=== PATIENT | male | born 1955 | race Caucasian/White ===

== ENCOUNTER 2016-09-11 08:10 | Outpatient (CLI) | END 2016-09-11 08:11 | disposition home or self-care (01) | LOC: LAB 08:10 | PROVIDERS: ATTEND General Practice | DX: Z02.1 Encounter for pre-employment examination (principal) | CPT/HCPCS: 36415 ==

== ENCOUNTER 2017-02-05 08:54 | Outpatient (CLI) | payer OTHER ==
[2017-02-05 09:09] LABS: BASOPHILS % (AUTO) 0.5 % (0.0-3.0); EOSINOPHILS # (AUTO) 0.1 K/ul (0.0-0.7); EOSINOPHILS % (AUTO) 1.9 % (0.0-7.0); HEMATOCRIT 37.5 % (42.0-52.0); HEMOGLOBIN 13.2 g/dl (14.0-18.0); IMMATURE GRANULOCYTE % (AUTO) 0.3 % (0.0-5.0); LYMPHOCYTES # (AUTO) 0.8 K/uL (0.60-3.4); MEAN CORPUSCULAR HEMOGLOBIN 31.1 pg (27.0-31.0); MEAN CORPUSCULAR HGB CONC 35.2 (31.8-35.4); MEAN CORPUSCULAR VOLUME 88.2 fl (80.0-94.0); MONOCYTES # (AUTO) 0.3 K/uL (0.4-2.0); MONOCYTES % (AUTO) 8.3 (0-10); NEUTROPHILS # (AUTO) 2.6 K/ul (2.0-6.9); PLATELET COUNT 149 10^3/uL (140-440); RED BLOOD COUNT 4.25 10^6/ul (4.70-6.10); WHITE BLOOD COUNT 3.75 K/ul (4.2-10.2)
[2017-02-05 09:49] LABS: ALBUMIN 4.2 g/dL (3.4-5.0); ALBUMIN/GLOBULIN RATIO 1.4; ANION GAP 12.9; BILIRUBIN,TOTAL 1.41 mg/dL (0.00-1.20); BUN/CREATININE RATIO 18.29; CHOL/HDL RATIO 3.2 (4.5-6.4); CREATININE 0.82 mg/dL (0.60-1.10); POTASSIUM 3.9 mmol/L (3.5-5.1); TOTAL PROTEIN 7.2 g/dL (5.8-8.1)
== END 2017-02-05 08:55 | disposition home or self-care (01) ==
LOC: LAB 08:54
PROVIDERS: ATTEND Family Medicine
DX: E11.9 Type 2 diabetes mellitus without complications (principal); I10 Essential (primary) hypertension; D70.9 Neutropenia, unspecified; E55.9 Vitamin D deficiency, unspecified; D64.9 Anemia, unspecified; Z12.5 Encounter for screening for malignant neoplasm of prostate
CPT/HCPCS: 36415; 80053; 80061; 82043; 82306; 83036; 84443; 85025

== ENCOUNTER 2017-12-05 08:18 | Outpatient (CLI) | END 2017-12-05 08:19 | disposition home or self-care (01) | LOC: LAB 08:18 | PROVIDERS: ATTEND Family Medicine | DX: R73.01 Impaired fasting glucose (principal); K21.9 Gastro-esophageal reflux disease without esophagitis; I10 Essential (primary) hypertension; E61.1 Iron deficiency; D64.9 Anemia, unspecified; M54.9 Dorsalgia, unspecified; G89.29 Other chronic pain; N21.8 Other lower urinary tract calculus; R01.1 Cardiac murmur, unspecified | CPT/HCPCS: 36415; 80053; 80061; 82043; 83036; 83540; 83550; 85025; 86803 ==

== ENCOUNTER 2018-12-08 12:31 | Outpatient (CLI) | END 2018-12-08 12:32 | disposition home or self-care (01) | LOC: LAB 12:31 | PROVIDERS: ATTEND Family Medicine | DX: I10 Essential (primary) hypertension (principal); R00.2 Palpitations; K21.9 Gastro-esophageal reflux disease without esophagitis; E61.1 Iron deficiency; E11.8 Type 2 diabetes mellitus with unspecified complications; D64.9 Anemia, unspecified; D70.9 Neutropenia, unspecified; Z12.5 Encounter for screening for malignant neoplasm of prostate | CPT/HCPCS: 36415; 80053; 80061; 82306; 82607; 82746; 83036; 83540; 83550; 84443; 85025 ==

== ENCOUNTER 2021-09-18 20:52 | Inpatient (IN) ==
[2021-09-18] MEDS ORDERED: SODIUM CHLORIDE 1,000 ML IV STA (20:59)
[2021-09-18] MEDS ORDERED: CARDIZEM INJ IVP STA (20:59)
--- NOTE | 2021-09-18 21:11 | ED.PDOC ---
General ED Provider: Dr. JANES LOUIS Chief Complaint: Chest Pain Stated Complaint: Pt presents with palpitations, chest pressure and lightheadedness. Pt has had extra beats in the past that has resolved with coughing. About 45 minutes prior to arrival, he developed palpitations that have not stopped. He had some chest pressure and lightheadedness with the palpitations. Denies any N/V/AP/SOB. Nothing else has made the sxs better or worse and they are mild in nature. Time Seen by Provider: 09/18/21 20:58 Primary Care Provider: GRANT RECIO Nursing and Triage Documentation Reviewed and Agree: Yes Does patient meet sepsis criteria?: No If yes, has appropriate treatment been initiated?: No System Inflammatory Response Syndrome: Not Applicable Sepsis Protocol: For patient's 13 years and over: Temp is 96.8 and below OR 101 and greater Pulse >90 BPM Resp >20/minute Acutely Altered Mental Status Are patient's symptoms suggestive of a new infection, such as: -Pneumonia -Skin, Soft Tissue -Endocarditis -UTI -Bone, Joint Infection -Implantable Device -Acute Abdominal Infection -Wound Infection -Meningitis -Blood Stream Catheter Infection -Unknown Review of Systems Review Of Systems Constitutional: Reports No symptoms Eyes: Reports No symptoms Ears, Nose, Mouth, Throat: Reports No symptoms Respiratory: Reports No symptoms Cardiac: Reports Chest pain (tightness), Lightheadedness and Palpitations GI: Reports No symptoms : Reports No symptoms Musculoskeletal: Reports No symptoms Skin: Reports No symptoms Neurological: Reports No symptoms Endocrine: Reports No symptoms Hematologic/Lymphatic: Reports No symptoms All Other Systems: Reviewed and Negative Physical Exam Physical Exam Appearance: Reports Well-appearing, No pain distress and Well-nourished Ill-appearing: None Pain Distress: None Eyes: Reports JAUN, EOMI and Conjunctiva clear ENT: Reports Not Examined Neck: Supple Respiratory: Reports Airway patent, Breath sounds clear, Breath sounds equal and Respirations nonlabored Cardiovascular: Reports No rub, No murmur, Irregular rhythm and Tachycardia GI/: Reports Soft, Nontender, No masses, Bowel sounds normal and No Organomeg rosy Musculoskeletal: Reports Normal strength, ROM intact, No edema and No calf tenderness Skin: Reports Warm, Dry and Normal color Neurological: Reports Sensation intact, Motor intact, Reflexes intact, Cranial nerves intact, Alert and Oriented Psychiatric: Reports Affect appropriate and Mood appropriate Interpretation EKG Interpretation Time of EKG #1: 21:09 Rate: Tachy Rhythm: Other (Afib) Ectopy: None [place]: [place] ST Segment: Other (Rate related ST depressions laterally.) Critical Care Note Critical Care Note Total Critical Care Time (mins): 32 Course Course Hematology/Chemistry: 09/18/21 21:13 09/18/21 21:13 Orders, Labs, Meds: Lab Review 09/18/21 09/18/21 09/18/21 21:10 21:13 21:13 WBC 5.43 RBC 4.31 L Hgb 13.6 L Hct 39.6 L MCV 91.9 MCH 31.6 H MCHC 34.3 RDW Coeff of Jamal 12.8 Plt Count 146 Immature Gran % (Auto) 0.4 Neut % (Auto) 70.3 Lymph % (Auto) 17.1 [place] % (Auto) 10.1 H Eos % (Auto) 1.7 Baso % (Auto) 0.4 Neut # (Auto) 3.8 Lymph # (Auto) 0.9 [place] # (Auto) 0.6 Eos # (Auto) 0.1 Baso # (Auto) 0.0 Immature Gran # (Auto) 0.0 Sodium 138.2 Potassium 3.79 Chloride 106.6 Carbon Dioxide 24.2 Anion Gap 11.19 BUN 29.7 H Creatinine 0.96 Estimated GFR (MDRD) 78.00 BUN/Creatinine Ratio 30.93 Glucose 156.2 H Calcium 9.80 Magnesium 2.13 Total Bilirubin 2.04 H AST 35.2 ALT 22.7 Alkaline Phosphatase 75.4 Total Creatine Kinase 169.7 CK-MB (CK-2) 2.620 H CK-MB (CK-2) % 1.5400 Troponin I 0.014 Total Protein 7.06 Albumin 4.51 Globulin 2.55 Albumin/Globulin Ratio 1.76 Amylase 63.0 SARS-CoV-2 Ag (Rapid) Negative Orders Category Date Time Status EKG-(ED ONLY) Stat CARDIO 09/18/21 21:00 Completed TELEMETRY MONITORING TELE CARE 09/18/21 21:57 Active AMYLASE Stat LAB 09/18/21 21:13 Completed CBC W/ AUTO DIFF Stat LAB 09/18/21 21:13 Completed COMPREHENSIVE METABOLIC PANEL Stat LAB 09/18/21 21:13 Completed COVID-19 ANTIGEN TEST Stat LAB 09/18/21 21:10 Completed CREATINE KINASE Stat LAB 09/18/21 21:13 Completed MAGNESIUM Stat LAB 09/18/21 21:13 Completed TROPONIN I Stat LAB 09/18/21 21:13 Completed Amlodipine Besylate [Norvasc] MEDS 09/19/21 17:00 Ordered 10 mg PO QPM Apixaban [Eliquis] MEDS 09/19/21 09:00 Ordered 5 mg PO BID Apixaban [Eliquis] MEDS 09/18/21 21:54 Discontinued 5 mg PO ONCE STA Cholecalciferol (Vitamin D3) [Vitamin D] MEDS 09/19/21 09:00 Ordered DOSE unit PO DAILY Diltiazem HCl [Cardizem Inj] MEDS 09/18/21 20:59 Discontinued 15 mg IVP ONCE STA Diltiazem HCl [Cardizem] 125 mg MEDS 09/18/21 21:00 Active 0.9 % Sodium Chloride [Sodium Chloride 100Ml] 100 ml IV TITRATION Metformin HCl [Glucophage] MEDS 09/19/21 09:00 Ordered 500 mg PO BID Sodium Chloride 0.9% [Sodium Chloride] 1,000 ml MEDS 09/18/21 20:59 Discontinued IV BOLUS multivitamin MEDS 09/19/21 09:00 Ordered 1 tab PO DAILY omeprazole magnesium [Prilosec OTC] MEDS 09/19/21 09:00 Ordered 20 mg PO DAILY CHEST, 1V AP ONLY Stat RADS 09/18/21 21:00 Completed Medications Generic Name Dose Route Start Last Admin Trade Name Freq PRN Reason Stop Dose Admin Amlodipine Besylate 10 mg 09/19/21 17:00 Amlodipine Besylate 5 Mg Tablet PO QPM [facility] Apixaban 5 mg 09/19/21 09:00 Apixaban 5 Mg Tab PO BID RIGO Cholecalciferol unit 09/19/21 09:00 Cholecalciferol (Vitamin D3) 1,000 Unit (25 Mcg) Tablet PO DAILY [facility] Diltiazem HCl 125 mg/ Sodium 125 mls @ 5 mls/hr 09/18/21 21:00 09/18/21 21:25 Chloride IV 5 mg/hr TITRATION RIGO 5 mls/hr Administration Protocol 5 MG/HR Losartan Potassium 50 mg 09/19/21 09:00 Losartan Potassium 100 Mg Tablet PO BID [facility] Metformin HCl 500 mg 09/19/21 09:00 Metformin Hcl 500 Mg Tablet PO BID RIGO Metformin HCl 500 mg 09/19/21 21:00 Metformin Hcl 500 Mg Tablet PO BEDTIME RIGO Non-Formulary Medication 20 mg 09/19/21 09:00 Omeprazole Magnesium [Prilosec Otc] PO DAILY RIGO Non-Formulary Medication 1 tab 09/19/21 09:00 Multivitamin PO DAILY RIGO Discontinued Medications Generic Name Dose Route Start Last Admin Trade Name Xanderq PRN Reason Stop Dose Admin Apixaban 5 mg 09/18/21 21:54 Apixaban 5 Mg Tab PO 09/18/21 21:55 ONCE STA Diltiazem HCl 15 mg 09/18/21 20:59 09/18/21 21:22 Diltiazem Hcl Inj 25 Mg/5 Ml Vial IVP 09/18/21 21:00 15 mg ONCE STA Administration Sodium Chloride 1,000 mls @ 1,000 mls/hr 09/18/21 20:59 09/18/21 21:25 Sodium Chloride IV 09/18/21 21:58 1,000 mls/hr BOLUS STA Administration Vital Signs: Temp Pulse Resp BP Pulse Ox 09/18/21 20:54 97.1 F L 149 H 20 109/76 92 L Discharge Plan Discharge Patient Disposition: ADMITTED INPATIENT Discharge Problem: Atrial fibrillation with rapid ventricular response, Incidental pulmonary nodule ED Provider: JANES LOUIS Physician Progress Note: I reviewed pt results. CBC shows a Hb of 13.6. Chems show a glucose of 156. CK and trop i are unremarkable. Covid test is negative and CXR show a pulmonary nodule but no other acute findings. I have tried to have the patient transferre d but there are no available beds. I spoke with Dr. Quinn who will consule on the patient. I will admit to the hospitalist service qwith his consult. Critical care time was 32 minutes excluding procedures for cardiac compromise.
[2021-09-18 21:16] LABS: BASOPHILS % (AUTO) 0.4 % (0.0-3.0); EOSINOPHILS # (AUTO) 0.1 K/ul (0.0-0.7); EOSINOPHILS % (AUTO) 1.7 % (0.0-7.0); HEMATOCRIT 39.6 % (42.0-52.0); HEMOGLOBIN 13.6 g/dl (14.0-18.0); IMMATURE GRANULOCYTE % (AUTO) 0.4 % (0.0-5.0); LYMPHOCYTES # (AUTO) 0.9 K/uL (0.60-3.4); LYMPHOCYTES % (AUTO) 17.1 (10.0-50.0); MEAN CORPUSCULAR HEMOGLOBIN 31.6 pg (27.0-31.0); MEAN CORPUSCULAR HGB CONC 34.3 (31.8-35.4); MEAN CORPUSCULAR VOLUME 91.9 fl (80.0-94.0); MONOCYTES # (AUTO) 0.6 K/uL (0.4-2.0); MONOCYTES % (AUTO) 10.1 (0-10); NEUTROPHILS # (AUTO) 3.8 K/ul (2.0-6.9); NEUTROPHILS % (AUTO) 70.3 % (42.2-75.2); PLATELET COUNT 146 10^3/uL (140-440); RDW COEFFICIENT OF VARIATION 12.8 % (11.6-14.8); RED BLOOD COUNT 4.31 10^6/ul (4.70-6.10); WHITE BLOOD COUNT 5.43 K/ul (4.2-10.2)
[2021-09-18] MEDS: CARDIZEM 125 MG in SODIUM CHLORIDE 100ML 100 ML IV SCH (21:25)
[2021-09-18 21:27] LABS: ALANINE AMINOTRANSFERASE 22.7 U/L (0-50); ALBUMIN 4.51 g/dL (3.5-5.0); ALKALINE PHOSPHATASE 75.4 U/L (56-119); ASPARTATE AMINO TRANSFERASE 35.2 U/L (17-59); BILIRUBIN,TOTAL 2.04 mg/dL (0.2-1.3); BLOOD UREA NITROGEN 29.7 mg/dL (9-20); CALCIUM 9.8 mg/dL (8.4-10.2); CARBON DIOXIDE 24.2 mmol/L (22-30.0); CHLORIDE 106.6 mmol/L (98-107); CREATINE KINASE 169.7 U/L (55-170); CREATININE 0.96 mg/dL (0.60-1.10); GLUCOSE 156.2 mg/dL (74-106); MAGNESIUM 2.13 mg/dL (1.6-2.3); POTASSIUM 3.79 mmol/L (3.5-5.1); SODIUM 138.2 mmol/L (134.5-145); TOTAL PROTEIN 7.06 g/dL (6.3-8.2)
[2021-09-18 21:38] LABS: TROPONIN I 0.014 ng/ml (0.0000-0.120)
[2021-09-18 21:41] LABS: CREATINE KINASE MB 2.62 ng/ml (0.0-2.38)
--- NOTE | 2021-09-18 21:44 | DI ---
EXAM: Single-view chest HISTORY: Chest pain COMPARISON: None. FINDINGS: The heart is normal in size. Atherosclerotic changes are seen involving the aortic arch.. There is no consolidation or effusion. 4 mm nodular opacity within the left upper lobe which may b e related to granulomatous changes. Suggest follow-up comparative examination at 3-month interval. IMPRESSION: No evidence of active pulmonary disease. Small upper lobe pulmonary nodule which merits follow-up of 3 mL.
[2021-09-18] MEDS ORDERED: ELIQUIS PO STA (21:54)
--- NOTE | 2021-09-18 22:08 | PCM ---
Chief Complaint Chief Complaint: Palpitations History of Present Illness History of Present Illness: Pt presents with palpitations, chest pressure and lightheadedness. Pt has had extra beats in the past that has resolved with coughing. About 45 minutes prior to arrival, he developed palpitations that have not stopped. He had some chest pressure and lightheadedness with the palpitations. Denies any N/V/AP/SOB. Nothing else has made the sxs better or worse and they are mild in nature. In the ER he was started on a cardizem drip and has responded slightly with a current HR around 130. Review of Systems Constitutional: Reports No symptoms Eyes: Reports No symptoms Ears: Reports No symptoms Nose: Reports No symptoms Throat: Reports No symptoms, Pain, Swelling, Voice change and Other Mouth: Reports No symptoms Respiratory: Reports No symptoms Cardiovascular: Reports Chest pain (Tightness) and Palpitations Gastrointestinal: Reports No symptoms Genitourinary: Reports No symptoms Neurological: Reports No symptoms Musculoskeletal: Reports No symptoms Skin: Reports No symptoms Immunology: Reports No symptoms Hematology: Reports No symptoms Endocrine: Reports No symptoms Psychiatric: Reports No symptoms Habits: Reports Tobacco use Allergies Allergies Allergy/AdvReac Type Severity Reaction Status Date / Time No Known Allergies Allergy Unverified 09/18/21 21:09 Medications Medications: Medications Generic Name Dose Route Start Last Admin Trade Name Freq PRN Reason Stop Dose Admin Amlodipine Besylate 10 mg 09/19/21 17:00 Amlodipine Besylate 5 Mg Tablet PO QPM [facility] Apixaban 5 mg 09/19/21 09:00 Apixaban 5 Mg Tab PO BID [facility] Cholecalciferol unit 09/19/21 09:00 Cholecalciferol (Vitamin D3) 1,000 Unit (25 Mcg) Tablet PO DAILY [facility] Diltiazem HCl 125 mg/ Sodium 125 mls @ 5 mls/hr 09/18/21 21:00 09/18/21 21:25 Chloride IV 5 mg/hr TITRATION RIGO 5 mls/hr Administration Protocol 5 MG/HR Losartan Potassium 50 mg 09/19/21 09:00 Losartan Potassium 100 Mg Tablet PO BID [facility] Metformin HCl 500 mg 09/19/21 09:00 Metformin Hcl 500 Mg Tablet PO BID [facility] Metformin HCl 500 mg 09/19/21 21:00 Metformin Hcl 500 Mg Tablet PO BEDTIME [facility] Non-Formulary Medication 20 mg 09/19/21 09:00 Omeprazole Magnesium [Prilosec Otc] PO DAILY [facility] Non-Formulary Medication 1 tab 09/19/21 09:00 Multivitamin PO DAILY [facility] Body Composition Height: 5 ft 11 in Weight: 118 kg Body Mass Index (BMI): 36.3 Vital Signs Temperature: 97.1 F Pulse Rate: 149 Respiratory Rate: 20 Blood Pressure: 109/76 O2 Sat by Pulse Oximetry: 92 Physical Examination Appearance: Reports Well-appearing Ill-appearing: None Pain Distress: None Eyes: Reports JAUN and EOMI ENT: Reports Not Examined Neck: Supple Respiratory: Reports Airway patent, Breath sounds clear, Breath sounds equal and Respirations nonlabored Cardiovascular: Reports Pulses normal, No rub, No murmur, Irregular rhythm and Tachycardia GI/: Reports Soft and Nontender Musculoskeletal: Reports Normal strength and ROM intact Skin: Reports Warm and Dry Neurological: Reports Sensation intact, Motor intact and Reflexes intact Psychiatric: Reports Affect appropriate and Mood appropriate Lab/Tests/Diagnostic Imaging Lab/Tests/Diagnostic Imaging: Lab Review 09/18/21 09/18/21 09/18/21 21:10 21:13 21:13 WBC 5.43 RBC 4.31 L Hgb 13.6 L Hct 39.6 L MCV 91.9 MCH 31.6 H MCHC 34.3 RDW Coeff of Jamal 12.8 Plt Count 146 Immature Gran % (Auto) 0.4 Neut % (Auto) 70.3 Lymph % (Auto) 17.1 [place] % (Auto) 10.1 H Eos % (Auto) 1.7 Baso % (Auto) 0.4 Neut # (Auto) 3.8 Lymph # (Auto) 0.9 [place] # (Auto) 0.6 Eos # (Auto) 0.1 Baso # (Auto) 0.0 Immature Gran # (Auto) 0.0 Sodium 138.2 Potassium 3.79 Chloride 106.6 Carbon Dioxide 24.2 Anion Gap 11.19 BUN 29.7 H Creatinine 0.96 Estimated GFR (MDRD) 78.00 BUN/Creatinine Ratio 30.93 Glucose 156.2 H Calcium 9.80 Magnesium 2.13 Total Bilirubin 2.04 H AST 35.2 ALT 22.7 Alkaline Phosphatase 75.4 Total Creatine Kinase 169.7 CK-MB (CK-2) 2.620 H CK-MB (CK-2) % 1.5400 Troponin I 0.014 Total Protein 7.06 Albumin 4.51 Globulin 2.55 Albumin/Globulin Ratio 1.76 Amylase 63.0 SARS-CoV-2 Ag (Rapid) Negative Orders Category Date Time Status ADMIT PATIENT INPATIENT .TO MEDSURG (MONITORED BED) ADMISSION 09/18/21 22:02 Active EKG-(ED ONLY) Stat CARDIO 09/18/21 21:00 Completed NOTIFY PHYSICIAN OF CONSULT ONCE CARE 09/18/21 21:59 Active TELEMETRY MONITORING TELE CARE 09/18/21 21:57 Active TELEMETRY MONITORING TELE CARE 09/18/21 22:02 Active CONSULT PHYSICIAN [PHYSICIAN CONSULTATION] [CONS] CONSULTS 09/18/21 21:59 Ordered Routine AMYLASE Stat LAB 09/18/21 21:13 Completed CBC W/ AUTO DIFF Stat LAB 09/18/21 21:13 Completed COMPREHENSIVE METABOLIC PANEL Stat LAB 09/18/21 21:13 Completed COVID-19 ANTIGEN TEST Stat LAB 09/18/21 21:10 Completed CREATINE KINASE Stat LAB 09/18/21 21:13 Completed MAGNESIUM Stat LAB 09/18/21 21:13 Completed TROPONIN I Stat LAB 09/18/21 21:13 Completed Amlodipine Besylate [Norvasc] MEDS 09/19/21 17:00 Ordered 10 mg PO QPM Apixaban [Eliquis] MEDS 09/19/21 09:00 Ordered 5 mg PO BID Apixaban [Eliquis] MEDS 09/18/21 21:54 Discontinued 5 mg PO ONCE STA Cholecalciferol (Vitamin D3) [Vitamin D] MEDS 09/19/21 09:00 Ordered DOSE unit PO DAILY Diltiazem HCl [Cardizem Inj] MEDS 09/18/21 20:59 Discontinued 15 mg IVP ONCE STA Diltiazem HCl [Cardizem] 125 mg MEDS 09/18/21 21:00 Active 0.9 % Sodium Chloride [Sodium Chloride 100Ml] 100 ml IV TITRATION Losartan Potassium [Cozaar] MEDS 09/19/21 09:00 Ordered 50 mg PO BID Metformin HCl [Glucophage] MEDS 09/19/21 21:00 Ordered 500 mg PO BEDTIME Metformin HCl [Glucophage] MEDS 09/19/21 09:00 Ordered 500 mg PO BID Sodium Chloride 0.9% [Sodium Chloride] 1,000 ml MEDS 09/18/21 20:59 Discontinued IV BOLUS multivitamin MEDS 09/19/21 09:00 Ordered 1 tab PO DAILY omeprazole magnesium [Prilosec OTC] MEDS 09/19/21 09:00 Ordered 20 mg PO DAILY CHEST, 1V AP ONLY Stat RADS 09/18/21 21:00 Completed Medications Generic Name Dose Route Start Last Admin Trade Name Gary PRN Reason Stop Dose Admin Amlodipine Besylate 10 mg 09/19/21 17:00 Amlodipine Besylate 5 Mg Tablet PO QPM RIGO Apixaban 5 mg 09/19/21 09:00 Apixaban 5 Mg Tab PO BID RIGO Cholecalciferol unit 09/19/21 09:00 Cholecalciferol (Vitamin D3) 1,000 Unit (25 Mcg) Tablet PO DAILY RIGO Diltiazem HCl 125 mg/ Sodium 125 mls @ 5 mls/hr 09/18/21 21:00 09/18/21 21:25 Chloride IV 5 mg/hr TITRATION RIGO 5 mls/hr Administration Protocol 5 MG/HR Losartan Potassium 50 mg 09/19/21 09:00 Losartan Potassium 100 Mg Tablet PO BID RIGO Metformin HCl 500 mg 09/19/21 09:00 Metformin Hcl 500 Mg Tablet PO BID RIGO Metformin HCl 500 mg 09/19/21 21:00 Metformin Hcl 500 Mg Tablet PO BEDTIME RIGO Non-Formulary Medication 20 mg 09/19/21 09:00 Omeprazole Magnesium [Prilosec Otc] PO DAILY RIGO Non-Formulary Medication 1 tab 09/19/21 09:00 Multivitamin PO DAILY RIGO Discontinued Medications Generic Name Dose Route Start Last Admin Trade Name Gary PRN Reason Stop Dose Admin Apixaban 5 mg 09/18/21 21:54 Apixaban 5 Mg Tab PO 09/18/21 21:55 ONCE STA Diltiazem HCl 15 mg 09/18/21 20:59 09/18/21 21:22 Diltiazem Hcl Inj 25 Mg/5 Ml Vial IVP 09/18/21 21:00 15 mg ONCE STA Administration Sodium Chloride 1,000 mls @ 1,000 mls/hr 09/18/21 20:59 09/18/21 21:25 Sodium Chloride IV 09/18/21 21:58 1,000 mls/hr BOLUS STA Administration Assessment (1) Atrial fibrillation with rapid ventricular response: Status: Acute Code(s): I48.91 - Unspecified atrial fibrillation SNOMED Code(s): 489129158369952 (2) Incidental pulmonary nodule: Status: Acute Code(s): R91.1 - Solitary pulmonary nodule SNOMED Code(s): 167658413 Plan Plan: 1. Afib w/ RVR: Admit to telemetry. Continue cardizem drip. Start Eliquis. Consult Dr. Quinn. 2. Pulmonary nodule: Follow up with PMD in 3 months for recheck.
[2021-09-19 00:49] VITALS: BMI 39.7
[2021-09-19 06:33] LABS: PROTHROMBIN TIME 10.8 SEC (9.3-11.0)
[2021-09-19] MEDS: PRILOSEC PO SCH (06:37)
[2021-09-19] MEDS ORDERED: GLUCOPHAGE PO SCH ×2 (08:30→21:00)
[2021-09-19] MEDS: MULTIVITAMIN TABLET PO SCH (08:53)
[2021-09-19] MEDS: ELIQUIS PO SCH ×2 (08:54→20:34)
[2021-09-19] MEDS: VITAMIN D PO SCH (08:54)
--- NOTE | 2021-09-19 08:56 | PCM.PROG ---
Attending Provider: ATTENDING PROVIDER: Dr. DANIELA BONE This patient is seen with Terese Granados, Nurse Practitioner. DATE OF SERVICE: 09/19/21 SUBJECTIVE: This 66 year old /WHITE M was hospitalized 09/18/21. Started last night with weakness episode. The patient noticed heart rate irregular and fast. He denies having any chest pain or breaking out in sweat. States he has been having some palpitation off and on for past several months. Denies any cardiac history. Last stress test approximately 5 years ago and normal. He has been limiting caffeine on his own. Regular PCP is Rigoberto Avila. REVIEW OF SYSTEMS: CONSTITUTIONAL: No night sweats. No fatigue, malaise, lethargy. No fever or chills. Weakness. HEENT: Eyes: No visual changes. No eye pain. No eye discharge. ENT: No runny nose. No epistaxis. No sinus pain. No odynophagia. No congestion. RESPIRATORY: No cough, no congestion. No hemoptysis. No shortness of breath. CARDIOVASCULAR: No angina symptoms. No CHF symptoms. No atypical chest pain for CAD. Palpitations. No orthopnea.. GASTROINTESTINAL: No abdominal pain. No nausea or vomiting. No diarrhea or constipation. No hematemesis. No hematochezia. GENITOURINARY: No urgency. No frequency. No dysuria. No hematuria. No obstructive symptoms. No discharge. No pain. No significant abnormal bleeding. MUSCULOSKELETAL: No musculoskeletal pain; no joint swelling. NEUROLOGICAL: Awake, alert, oriented to time, place and person. No headache. No neck pain. No syncope. No seizures. No dizziness. PSYCHIATRIC: Not anxious. No depression. No suicidal thoughts. No homicidal thoughts. SKIN: No rash. No lesions. No wounds. ENDOCRINE: No unexplained weight loss. No weight gain. HEMATOLOGIC/LYMPHATIC: No anemia. No purpura. No petechiae. No prolonged or exce ssive bleeding. No palpable lymph nodes. PHYSICAL EXAMINATION: GENERAL: The patient is awake, alert and oriented, lying in bed in no distress. VITAL SIGNS: Temperature 98.5 F, Pulse 130, Respiratory Rate 20, BP 102/64, Pulse Ox 95% HEENT: Head normocephalic, atraumatic. Eyes: Extraocular muscles are intact. Pupils are equal, round and reactive to light and accommodation. Ears: No lesions. Nose appeared normal. Throat: No exudate or erythema. NECK: Supple. No JVD, no carotid bruit. No lymphadenopathy or thyromegaly. LUNGS: Clear to auscultation. Percussion note normal. Chest symmetrical. HEART: S1, S2, no S3. No murmurs. Irregular heart rate. No cyanosis or clubbing. No ascites. Pulses: Dorsalis pedis and posterior tibial pulses +1 to +2 both sides. ABDOMEN: Soft. Non-tender. Bowel sounds active. No CVA tenderness. No mass felt. EXTREMITIES: No edema. Full range of motion of all extremities, equal. NEUROLOGIC: No focal deficit. Cranial nerves II through XII are grossly intact. No headache. No double vision. SKIN: Not dry. Intact. Turgor-normal. LYMPHATIC: No palpable lymph nodes/no lymphedema. MUSCULOSKELETAL: Normal joints with no swelling. Muscle tone is normal. LAB REVIEW: 09/18/21 21:13 09/18/21 21:13 09/19/21 06:10: Troponin I 0.480 H 09/19/21 06:10: PT 10.8, INR 1.04 09/18/21 21:13: Sodium 138.2, Potassium 3.79, Chloride 106.6, Carbon Dioxide 24.2, Anion Gap 11.19, BUN 29.7 H, Creatinine 0.96, Estimated GFR (MDRD) 78.00, BUN/Creatinine Ratio 30.93, Glucose 156.2 H, Calcium 9.80, Magnesium 2.13, Total Bilirubin 2.04 H, AST 35.2, ALT 22.7, Alkaline Phosphatase 75.4, Total Creatine Kinase 169.7, CK-MB (CK-2) 2.620 H, CK-MB (CK-2) % 1.5400, Troponin I 0.014, Total Protein 7.06, Albumin 4.51, Globulin 2.55, Albumin/Globulin Ratio 1.76, Amylase 63.0 09/18/21 21:13: WBC 5.43, RBC 4.31 L, Hgb 13.6 L, Hct 39.6 L, MCV 91.9, MCH 31.6 H, MCHC 34.3, RDW Coeff of Jamal 12.8, Plt Count 146, Immature Gran % (Auto) 0.4, Neut % (Auto) 70.3, Lymph % (Auto) 17.1, [place] % (Auto) 10.1 H, Eos % (Auto) 1.7, Baso % (Auto) 0.4, Neut # (Auto) 3.8, Lymph # (Auto) 0.9, [place] # (Auto) 0.6, Eos # (Auto) 0.1, Baso # (Auto) 0.0, Immature Gran # (Auto) 0.0 09/18/21 21:10: SARS-CoV-2 Ag (Rapid) Negative ASSESSMENT: Please see below. 1. New onset atrial fibrillation with RVR 2. Diabetes Mellitus type II 3. Obesity 4. Family history of CAD 5. Nonsmoker PLAN: 1. T4 TSH 2. Lipid panel 3. A1c 4. 2D echo 5. Hold Losartan 6. Hold Norvasc Plan and coordination of the patient's care discussed in the presence of Clinic Cma and nurse. SCRIBED BY: DENAE JOSEPH Wood Block Artist scribed while in presence of service performed by Dr. Quinn/Terese Granados APRN on 09/19/21 ([id number])
[2021-09-19] MEDS ORDERED: COZAAR PO SCH ×2 (09:00)
[2021-09-19] MEDS ORDERED: MOBIC PO SCH (09:00)
[2021-09-19 09:23] LABS: CHOLESTEROL 159.8 mg/dL (0-200); HDL CHOLESTEROL 44.4 mg/dL (35-60); TRIGLYCERIDES 114.6 mg/dL (0-150)
[2021-09-19 09:56] LABS: THYROID STIMULATING HORMONE 1.38 uIU/L (0.465-4.68)
[2021-09-19] MEDS: CARDIZEM PO SCH ×2 (10:09→20:33)
[2021-09-19] MEDS ORDERED: LANOXIN IVP ONE ×2 (10:15→11:20)
[2021-09-19] MEDS: CARDIZEM 125 MG in SODIUM CHLORIDE 100ML 100 ML IV SCH ×2 (11:31→21:00)
--- NOTE | 2021-09-19 14:24 | ECHO2D ---
Date of Exam: 09/19/2021 Ordering Physician: DR. RECIO / HOSPITALIST ADMIT Room #: 109 Reason for Echo: ATRIAL FIBRILLATION WITH RAPID VENTRICULAR RATE M-Mode Normal Adult Results LV Dimensions Normal Adult Results AoV Opening excursions >1.6 >1.6 LVEDD-base- 3.5-5.8 5.3 Ao root dimensions 2.0-3.7 4.1 LVESD-base- 3.1-4.6 L. Atrium dimensions 1.9-3.8 5.6 Post. Wall thickness 0.8-1.1 1.4 IV septum (thickness) 0.7-1.2 1.5 Post. Wall excursion 0.72-1.3 NORMAL Septal motion NORMAL Systolic motion R. Ventricular cavity 1.5-2.0 NORMAL LVEF 60% 74% Paradoxical septal wall motion NORMAL 2-D : ENLARGED LEFT ATRIAL CAVITY. CALCIFIC MITRAL VALVE ANNULUS. 2-D M Mode Echocardiogram was performed using apical four chamber and left parasternal long and short axis views. Calcific mitral valve annulus. Tricuspid and aortic valves appear to be normal. Contractility of the left ventricle seems to be normal, so is the cavity size. Enlarged left atrial cavity size. Aortic root appears mildly dilated. There is no pericardial effusion. There is no thrombus noted in the left ventricle or left atrial cavity. M-MODE: MV: CALCIFIC MITRAL VALVE ANNULUS AV: NORMAL TV: NORMAL PV: CHAMBER SIZE: ENLARGED LEFT ATRIAL CAVITY WALL MOTION: NORMAL PERICARDIUM: NORMAL INTERPRETATION: 1. MODERATE LEFT VENTRICULAR HYPERTROPHY WITH ENLARGED LEFT ATRIAL CAVITY (5.6CM) 2. CALCIFIC MITRAL VALVE ANNULUS (HEAVY) 3. NORMAL LEFT VENTRICULAR CONTRACTILITY. NORMAL LEFT VENTRICLE SIZE. 4. DILATED AORTIC ROOT (MILD) MTDD
[2021-09-19] MEDS ORDERED: NORVASC PO SCH (17:00)
[2021-09-19] MEDS ORDERED: COZAAR PO ONE (18:10)
[2021-09-19] MEDS ORDERED: HYDROCHLOROTHIAZIDE PO ONE (18:10)
[2021-09-20] MEDS: PRILOSEC PO SCH (05:48)
[2021-09-20 06:26] VITALS: BP 149/93; TEMP 97.4
--- NOTE | 2021-09-20 08:08 | PCM.PROG ---
Date Seen by Provider: 09/20/21 Time Seen by Provider: 07:45 Subjective: Pt is doing well this morning. Converted from Afib to sinus rhythm yesterday around 1. Denies any palpitations, CP or SOB today. Objective: Vitals: T=97.4 F, P=69, R=16, AD=559/93, SPO2=94 HEENT: PERRL Neck: supple Lungs: clear CVS: RRR Abdomen: soft, non-tender Neurological: A+O x3 Lab/Tests/Diagnostic Imaging: second trop was 0.48. INR negative. Echo showed moderate LVH, calcified mitral valve and mild aortic root dilation. (1) Atrial fibrillation with rapid ventricular response: Status: Acute Code(s): I48.91 - Unspecified atrial fibrillation SNOMED Code(s): 197338685559606 (2) Incidental pulmonary nodule: Status: Acute Code(s): R91.1 - Solitary pulmonary nodule SNOMED Code(s): 642113465 Plan: 1. Afib w/ RVR: Pt has converted. Will check a trop today to assure that it is not still rising. Will await cardiology recommendations and suspect DC today or possibly tomorrow. 2. Pulmonary nodule: Follow up with repeat CXR in 3 months.
[2021-09-20] MEDS: MULTIVITAMIN TABLET PO SCH (08:48)
[2021-09-20] MEDS: VITAMIN D PO SCH (08:48)
[2021-09-20] MEDS: ELIQUIS PO SCH (08:48)
[2021-09-20] MEDS: CARDIZEM PO SCH (08:48)
[2021-09-20] MEDS ORDERED: COZAAR PO SCH (09:00)
--- NOTE | 2021-09-20 10:17 | PCM.CONS ---
CONSULTING PROVIDER: Dr. BENJY RUEDA ATTENDING PROVIDER: Dr. JANES LOUIS DATE OF SERVICE: 09/20/21 SUBJECTIVE: This 66 year old /WHITE M was hospitalized 09/18/21 with atrial fibrillation with rapid ventricular response. The patient's symptoms prior to coming to ER more like chest tightness and dizziness. The patient had no symptoms of coronary insufficiency or CHF. The patient stayed in atrial fibrillation for 24 hours and converted to sinus rhythm yesterday afternoon. That was about 18 hours ago. The patient has been in sinus rhythm ever since then. REVIEW OF SYSTEMS: CONSTITUTIONAL: No night sweats. No fatigue, malaise, lethargy. No fever or chills. Feeling a lot better this morning. HEENT: Eyes: No visual changes. No eye pain. No eye discharge. ENT: No runny nose. No epistaxis. No sinus pain. No odynophagia. No congestion. RESPIRATORY: No cough, no congestion. No hemoptysis. No shortness of breath. CARDIOVASCULAR: No angina symptoms. No CHF symptoms. No atypical chest pain for CAD. No palpitations. No orthopnea. No chest tightness during hospital stay. GASTROINTESTINAL: No abdominal pain. No nausea or vomiting. No diarrhea or constipation. No hematemesis. No hematochezia. GENITOURINARY: No urgency. No frequency. No dysuria. No hematuria. No obstructive symptoms. No discharge. No pain. No significant abnormal bleeding. MUSCULOSKELETAL: No musculoskeletal pain; no joint swelling. NEUROLOGICAL: Awake, alert, oriented to time, place and person. No headache. No neck pain. No syncope. No seizures. No dizziness. PSYCHIATRIC: Not anxious. No depression. No suicidal thoughts. No homicidal thoughts. SKIN: No rash. No lesions. No wounds. ENDOCRINE: No unexplained weight loss. No weight gain. HEMATOLOGIC/LYMPHATIC: No anemia. No purpura. No petechiae. No prolonged or excessive bleeding. No palpable lymph nodes. PHYSICAL EXAMINATION: GENERAL: The patient is awake, alert and oriented, lying in bed in no distress. VITAL SIGNS: Temperature 97.4 F, Pulse 69, Respiratory Rate 16, BP 149/93, Pulse Ox 94% HEENT: Head normocephalic, atraumatic. Eyes: Extraocular muscles are intact. Pupils are equal, round and reactive to light and accommodation. Ears: No lesions. Nose appeared normal. Throat: No exudate or erythema. NECK: Supple. No JVD, no carotid bruit. No lymphadenopathy or thyromegaly. LUNGS: Clear to auscultation. Percussion note normal. Chest symmetrical. HEART: S1, S2, no S3. Grade II/ systolic murmurs at the apex going to axilla. No cyanosis or clubbing. No ascites. Pulses: Dorsalis pedis and posterior tibial pulses +2 strong both sides. ABDOMEN: Soft. Non-tender. Bowel sounds active. No CVA tenderness. No mass felt. EXTREMITIES: No edema. Full range of motion of all extremities, equal. NEUROLOGIC: No focal deficit. Cranial nerves II through XII are grossly intact. No headache, no double vision or headache. SKIN: Warm and dry. Intact. Turgor-normal. LYMPHATIC: No palpable lymph nodes/no lymphedema. MUSCULOSKELETAL: Normal joints with no swelling. Muscle tone is normal. LAB REVIEW: 09/18/21 21:13 09/18/21 21:13 09/20/21 07:56: Troponin I 0.258 H 09/19/21 05:02: Free T4 1.11 09/19/21 05:02: Triglycerides 114.6, Cholesterol 159.8, LDL Cholesterol, Calc 92, VLDL Cholesterol 23, HDL Cholesterol 44.4, Cholesterol/HDL Ratio 3.6 L, TSH 1.380 09/19/21 05:02: Hemoglobin A1c 6.54 H ASSESSMENT: Please see below. 1. Atrial fibrillation with RVR converted to sinus rhythm 2. Chest tightness on admission with no evidence of acute myocardial event so far. 3. No symptoms of coronary insufficiency 4. Hypertension 5. Diabetes mellitus type II 6. Morbid obesity RECOMMENDATIONS/PLAN: 1. Stat CKMB 2. Continue Eliquis 5mg BID 4. Cardizem 60mg BID 5. Discontinue Amlodipine 6. Cozaar continue 50mg BID 7. Discontinue Meloxicam as the patient is on Eliquis. Plan and coordination of the patient's care discussed in the presence of Industrial Spraypainter and Nurse. The patient had echo done yesterday which showed moderate LVH with markedly enlarged left atrial cavity, 5.5cm with normal LV contractility and normal ejection fraction. Calcific mitral valve annulus. Further recommendation is the patient may need stress sestamibi as outpatient. The patient's Cardiovascular status and respiratory status is stable. The patient is advised to followup with Dr. Avila after discharge. I will discuss the case with hospitalist. EKG this morning showed sinus rhythm with rate 80 per minute. LVH with strain progression and R wave progression about the same as admission. Troponin was noted to be elevated yesterday 0.4 this morning 0.2. Lipid profile is normal. A1c is 6.5. SCRIBED BY: DENAE JOSEPH Consumer Insights Specialist scribed while in presence of service performed by Dr. BENJY RUEDA on 09/20/21 ([id number])
--- NOTE | 2021-09-20 12:29 | PCM.DC ---
Final Diagnosis: New onset Atrial fibrillation with RVR (1) Atrial fibrillation with rapid ventricular response: Status: Acute Code(s): I48.91 - Unspecified atrial fibrillation SNOMED Code(s): 664857408887029 (2) Incidental pulmonary nodule: Status: Acute Code(s): R91.1 - Solitary pulmonary nodule SNOMED Code(s): 420470183 Reason for Hospitalization: New onset Afib w/ RVR Prognosis/Condition at Discharge: Pt has converted to a sinus rhythm and has been switched over to oral medications. Doing well and is improved and stable at discharge. Medications at Discharge: Ambulatory Orders Medication Instructions Recorded amlodipine 10 mg tablet 10 mg PO QPM 09/18/21 cholecalciferol (vitamin D3) 25 25 mcg PO DAILY 09/18/21 mcg (1,000 unit) tablet (Vitamin D3) losartan 50 mg tablet 50 mg PO BID 09/18/21 meloxicam 15 mg tablet 15 mg PO DAILY 09/18/21 metformin 500 mg tablet,extended 500 mg PO QPM 09/18/21 release 24 hr multivitamin 1 tab PO DAILY 09/18/21 omeprazole magnesium 20 mg 20 mg PO DAILY 09/18/21 tablet,delayed release (Prilosec OTC) Lab/Diagnostics: Trop I at 0.258 and trending down today. Follow-ups: Your PMD in Thursday as scheduled. Discharge Disposition: Home Hospital Course: Pt was admitted on a Cardizem drip. Converted on second day of hopsitalization. Had an Echo that showed mild abnormalities but good function. Switched to oral medications and has had no further sxs. Seen by cardiology and had medications adjusted. Stable for discharge. Plan: 1. Afib w/ RVR: Converted now. Will stop Meloxicam and Norvasc. Will start Cardizem 60mg BID and Eliquis 5mg BID. 2. Pulmonary Nodule: Follow up for repeat cxr is 3 months
== END 2021-09-20 13:50 | disposition home health service (06) | DRG 310 ==
LOC: ED 20:52 → MEDSURG A 21:58
PROVIDERS: ADMIT Emergency Medicine; ATTEND Emergency Medicine
DX: R07.9 Chest pain, unspecified; R91.1 Solitary pulmonary nodule; Z20.822 Contact with and (suspected) exposure to COVID-19; R00.2 Palpitations; I48.91 Unspecified atrial fibrillation